=== PATIENT | female | born 1950 | race Caucasian/White ===

== ENCOUNTER 2018-04-15 06:18 | Day surgery (SDC) | payer OTHER ==
[~2018-04-15 06:18] MED LIST: EVISTA60 MG PO; METFORMIN HCL500 MG PO; OSTERA TABLET1 EACH PO; ZOCOR40 MG PO
[2018-04-15] MEDS ORDERED: PERCOCET 5-3251 EACH PO (10:50)
== END 2018-04-15 13:20 | disposition home or self-care (01) ==
LOC: CIR.AMB 06:18
DX: D35.1 Benign neoplasm of parathyroid gland (principal)